=== PATIENT | female | born 1960 ===

== ENCOUNTER 2016-09-12 10:54 | Emergency (ER) | payer OTHER ==
--- NOTE | 2016-09-12 11:52 | UC ---
Mike Hernandez Claudia, scribed for Lan Marcus MD on 09/12/16 at 1143 . Ear Complaint HPI - HPI Summary HPI Summary: 56 year old female presents to the [facility] with constant left ear pain. She states some fluid/blood discharge accompany the pain. She states that the ear feels warm to the touch. Pt denies any PEREZ, nasal discharge, cough, fever, chills, loss of hearing, or right ear pain. Pt denies any aggravating or alleviating factors. Pt states sudden onset last week with it getting a little bit better today. She denies any recent swimming. - History of Current Complaint Chief Complaint: UCEar Stated Complaint: EAR PAIN Time Seen by Provider: 09/12/16 11:36 Hx Obtained From: Patient Onset/Duration: Sudden Onset, Lasting Weeks, Still Present Associated Signs/Symptoms: Negative: Hearing Loss - Allergies/Home Medications Allergies/Adverse Reactions: Allergies Allergy/AdvReac Type Severity Reaction Status Date / Time No Known Allergies Allergy Verified 09/12/16 11:21 PMH/Surg Hx/FS Hx/Imm Hx Previously Healthy: Yes - Surgical History Surgical History: None - Family History Known Family History: Negative: Hypertension, Diabetes - Social History Lives: With Family Alcohol Use: None Substance Use Type: None Smoking Status (MU): Never Smoked Tobacco Review of Systems Constitutional: Negative - NO FEVER, CHILLS Skin: Negative Eyes: Negative ENT: Ear Ache, Nasal Discharge - NO NASAL DISCHARGE, Other - NO HEARING LOSS Respiratory: Negative - NO COUGH, Cough Cardiovascular: Negative Gastrointestinal: Negative Genitourinary: Negative Motor: Negative Neurovascular: Negative Musculoskeletal: Negative Neurological: Negative - NO PEREZ Psychological: Negative All Other Systems Reviewed And Are Negative: Yes Physical Exam Triage Information Reviewed: Yes Appearance: Well-Appearing, No Pain Distress, Well-Nourished Vital Signs: Initial Vital Signs Temp 98.0 F 09/12/16 11:18 Pulse 64 09/12/16 11:18 Resp 18 09/12/16 11:18 BP 121/80 09/12/16 11:18 Pulse Ox 100 09/12/16 11:18 Vital Signs Reviewed: Yes Eyes: Positive: Conjunctiva Clear ENT: Positive: Normal ENT inspection, Hearing grossly normal, Pharynx normal, TMs normal, Other: - LEFT EAR CANAL : + ERYTHEMA, EDEMA, TENDERR , DISCHARGE. Negative: TM bulging, TM dull, TM red Neck exam: Normal Neck: Positive: Supple, Nontender, No Lymphadenopathy Respiratory: Positive: Chest non-tender, Lungs clear, Normal breath sounds Ear Complaint Course/Dx - Differential Dx/Diagnosis Provider Diagnoses: OTITIS EXTERNA LEFT EAR Discharge - Discharge Plan Condition: Stable Disposition: HOME Prescriptions: Amoxicillin/Clavulanate TAB* [Augmentin TAB 875*] 875 mg PO BID #20 tab Neomyc/Polym/HC 1% OTIC SUSP* [Cortisporin Otic Susp 1%*] 4 drop LEFT EAR QID # 1 btl Patient Education Materials: Otitis Externa (ED) Additional Instructions: FOLLOW UP IN 5 DAYS IF NOT BETTER The documentation as recorded by the Mike lyon Claudia accurately reflects the service I personally performed and the decisions made by Angeline massey Hossein, MD.
== END 2016-09-12 11:59 | disposition home or self-care (01) ==
LOC: UCEAST 10:54
DX: H60.92 Unspecified otitis externa, left ear (principal)
CPT/HCPCS: 99202; G0463